=== PATIENT | male | born 1995 | race Caucasian/White ===

== ENCOUNTER 2017-09-16 08:59 | Inpatient (IN) | payer BC, OTHER ==
[~2017-09-16] VITALS: Ht 182.9 cm; Wt 72.6 kg
--- NOTE | 2017-09-16 10:55 | NUR ---
Pre-Admission Console Operator encounters pt in intake office. Pt is anxious, restless and concrete in thought process, and flat speech, clear to understand. Pt with racing thoughts and flight of ideas. Pt is difficult to redirect at times. Pt endorses using 2mg Xanax(Bar) for thr last year or so. Pt endorses binge using, using 5-6 bars daily for a couple days then doesn't use for 1 week. Last use this am, 4mg Xanax. Pt endorses doing "5 bumps of cocaine in the last 3 months." Last use more then one month ago. Pt endorse occasional "social drinking." Pt VS( to follow ) are stable and pt endorses no medical or seizure history. VS: BP: 116/70 P: 92 T:98.2 O2: 97% P:0/10
--- NOTE | 2017-09-16 11:35 | NUR ---
Admission Licensing Director admitted 22 year old male to [facility] for medical management of Benzodiazepine withdrawals. Pt endorses no medical history, with no seizure history noted. Pt endorses a PPH of Bipolar, anxiety and depression. Pt presents hyper-verbal, hyper-active, tangential with flight of ideas and pressured speech. Pt requires frequent redirection to stay on task. Pt with poor concentration and attention span. Pt is a poor historian and has difficulty creating time lines. 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 Pt endorses having been hospitalized in a psychiatric hospital on two separate occasions. Pt has difficulty with a time line, pt was recently admitted to [facility] in [place], [place]. Pt also reports a lifetime of thinking of suicide, pt states I have thought of suicide since I was a child, I think of it as a solution. Pt became anxious and defensive when functional tester typewriters asks more questions. Pt denies any current suicidal ideation. Pt denies ever having plan and states, I think of it on an intellectual level. Pt states, I am not a suicide risk. Dr. Soto on the unit, made aware of pts statements. Pt states, I am here for medical clearance to go to [facility] Pt endorses using 10-12mg of Xanax on a weekly basis, with this usage for the past 1 year. Pt states this has been his pattern, weekly use, followed by no substance abuse in between. Pt also endorses taking, 5 bumps in 3 months, with last use one month ago. Pt states he drinks, socially and only occasionally. Pt endorse this as his first detoxification center or treatment center. Pt endorses a outward bound like facility in [place], as a 17 year old. Pt states he has never had any withdrawal symptoms and cannot identify any such symptoms. Pt states his last use was this am at 0500, pt endorses 4mg, as well as 2 mg last evening. Pt is currently unemployed and lives with his parents. Although pt states, I live with my friends have the time. Pt plans on going to [facility] after discharge from [facility]. Pt states he was diagnosed as Bipolar as a young man by Dr. Alvares in [place], [place]. Pt also seeing his Learning Designer as his PCP, Dr Loza in [place] as well as psychiatrist Dr. Benitez, also of [place]. Pt states he uses because I am Bipolar when I am down I use. Pt states he wants to get sober, nimo its not working. Pt had 3 months sober because of a court mandated program, and describes extreme lows as relapse triggers and finds easy access in [place]. Pt believes if he fixes his ups and downs he would be ok. Pt states he wants to get sober, to be a successful member of society. And considers outburst of behaviors, forgetting times, ups and downs of emotions, as consequences from his drug use. Pt states he wants to fix his life and start over. Pt is educated on admission education material process and oriented to room, unit guidelines and rules. Licensing Director performs skin assessment with pts skin intact with no open sores or wounds present. Addendum: 09/17/17 at 1027 by JENAE HUMPHREY LVN CLARIFICATION: In regards to "5 bumps in 3 months" patient reports that in the past three months he has consumed taking an unknown amount of cocaine five times intranasally. Patient reports its not something he does on a regular basis reports " I don't do it all the time" In regards to Xanax usage patient verbalized taking 10-12 mg of Xanax on a non daily basis, patient reports he may use 3x/week approximately 2-4mg per day, but denies taking on a daily basis. Patient also reports there are weeks where he only uses one day for that week, and the following week it may be three days out of the week, " it depends on what is going on that day, that leads me to take it"
--- NOTE | 2017-09-16 12:00 | NUR ---
CIWA 10 Pt is anxious and restless, denies all withdrawal symptoms, " no, I feel good, I have been in withdrawal." Pt is hyper-verbal, with flight of ideas and pressured speech. Pt has a short attention span and is tangential with thought process.
[2017-09-16 12:08] LABS: *AMPHETAMINE, URINE NEGATIVE (NEGATIVE); *BARBITURATE, URINE NEGATIVE (NEGATIVE); *CANNABINOID, URINE POSITIVE (NEGATIVE); *COCCAINE, URINE NEGATIVE (NEGATIVE); *OPIATE, URINE NEGATIVE (NEGATIVE); *PHENCYCLIDINE SCREEN,URINE NEGATIVE (NEGATIVE)
[2017-09-16] MEDS ORDERED: MIRALAX 17 GM POWD.PACK PO PRN (12:30)
[2017-09-16] MEDS ORDERED: MAGNESIUM HYDROXIDE 30 ML LIQUID UDC PO PRN (12:30)
[2017-09-16] MEDS ORDERED: diphenhydrAMINE 50 MG CAPSULE PO PRN (12:30)
[2017-09-16] MEDS ORDERED: ONDANSETRON ODT 4 MG TAB.RAPDIS SL PRN (12:30)
[2017-09-16] MEDS ORDERED: MAG HYDROX/AL HYDROX/SIMETH 30 ML LIQUID UDC PO PRN (12:30)
[2017-09-16] MEDS ORDERED: ONDANSETRON 4 MG/2 ML VIAL IM PRN (12:30)
[2017-09-16] MEDS ORDERED: LOPERAMIDE HCL 2 MG CAPSULE PO PRN ×2 (12:30)
[2017-09-16] MEDS ORDERED: DICYCLOMINE HCL 20 MG TABLET PO PRN (12:30)
[2017-09-16] MEDS ORDERED: LORAZEPAM 2 MG/1 ML VIAL IM PRN (12:30)
[2017-09-16] MEDS ORDERED: IBUPROFEN 600 MG TABLET PO PRN (12:30)
[2017-09-16] MEDS ORDERED: LORAZEPAM 1 MG TABLET PO PRN (12:30)
[2017-09-16] MEDS ORDERED: ACETAMINOPHEN 325 MG TABLET PO PRN (12:30)
[2017-09-16 12:58] VITALS: BP 106/56
[2017-09-16 14:18] LABS: ETHANOL < 3 MG/DL (0-0)
[2017-09-16 14:19] LABS: AMYLASE 57 U/L (25-115); LIPASE 235 U/L (73-393)
[2017-09-16 14:21] LABS: ALANINE AMINOTRANSFERASE 40 U/L (16-63); ALKALINE PHOSPHATASE 54 U/L (50-136); ASPARTATE AMINOTRANSFERASE 21 U/L (15-37); BILIRUBIN,TOTAL 0.3 mg/dL (0.2-1.0); CARBON DIOXIDE 26 mmol/L (21-32); CHLORIDE 106 mmol/L (98-107); CREATININE 0.9 mg/dL (0.6-1.3); GLUCOSE 99 mg/dL (74-106); MAGNESIUM 2.2 mg/dL (1.8-2.4); POTASSIUM 3.6 mmol/L (3.5-5.1); TOTAL PROTEIN, SERUM 7.3 g/dL (6.4-8.2); UREA NITROGEN, BLOOD 12 mg/dL (7-18)
[2017-09-16] MEDS ORDERED: TRAZODONE 100 MG TABLET PO PRN (14:45)
[2017-09-16 15:08] LABS: BASOPHILS # (AUTO) 0.1 K/uL (0.0-8.0); BASOPHILS % (AUTO) 1.2 % (0.0-2.0); EOSINOPHILS % (AUTO) 0.5 % (0.0-7.0); HEMATOCRIT 45.5 % (36.7-47.1); HEMOGLOBIN 15.2 g/dL (12.5-16.3); LYMPHOCYTES # (AUTO) 1.6 K/uL (20.0-40.0); LYMPHOCYTES % (AUTO) 31.9 % (20.5-51.5); MEAN CORPUSCULAR HEMOGLOBIN 29.5 uug (23.8-33.4); MEAN CORPUSCULAR HGB CONC 33 g/dL (32.5-36.3); MEAN CORPUSCULAR VOLUME 88.2 fL (73.0-96.2); MONOCYTES # (AUTO) 0.3 K/uL (2.0-10.0); NEUTROPHILS % (AUTO) 59.4 % (38.5-71.5); PLATELET COUNT (AUTO) 300 K/uL (152-348); RED BLOOD CELL COUNT(AUTO) 5.16 MIL/uL (4.06-5.63)
[2017-09-16] MEDS ORDERED: BUSP15TA3 PO (16:29)
[2017-09-16] MEDS ORDERED: TRAZ-214 PO (16:29)
[2017-09-16] MEDS ORDERED: GABA-534 PO (16:29)
[2017-09-16] MEDS ORDERED: QUET100T PO (16:29)
[2017-09-16] MEDS ORDERED: GABA600T2 PO (16:29)
[2017-09-16] MEDS ORDERED: QUET50TA PO (16:29)
[2017-09-16] MEDS ORDERED: BUSP30TA2 PO (16:29)
[2017-09-16 16:30] VITALS: BP 116/80
--- NOTE | 2017-09-16 16:30 | NUR ---
CIWA 6 Pt ia anxious and restless. Cooperative and polite. Will continue t omonitor, support and encourage according to plan of care.
[2017-09-16] MEDS ORDERED: [UNRECOGNIZED DRUG - REMARK] PO (17:19)
[2017-09-16] MEDS ORDERED: IBUP-1953 PO (17:19)
[2017-09-16] MEDS ORDERED: METHYL CPG PO (17:19)
[2017-09-16] MEDS ORDERED: ASPI-612 PO (17:23)
[2017-09-16] MEDS ORDERED: ZINC57OI6 TP (17:23)
[2017-09-16] MEDS ORDERED: [UNRECOGNIZED DRUG - CODE] TP (17:33)
[2017-09-16] MEDS: GABAPENTIN 300 MG CAPSULE PO SCH ×2 (18:00→22:00)
[2017-09-16] MEDS: busPIRone 10 MG TABLET PO SCH (18:00)
--- NOTE | 2017-09-16 19:00 | NUR ---
End of Shift Machine Sand Mixer admitted pt on 09/16/17 for medical management of Xanax withdrawals. Pt endorses NKDA, full code and regular diet. Denies any PMH with a PPH of Depression, Anxiety and Bipolar DO. Pt denies any withdrawal symptoms and last CIWA was 6. Pt currently on PRN Ativan for symptoms of withdrawal. Pt is hyper-verbal and has flight of ideas. Pt is cooperative and polite. [place] in nature. Needs redirection to stay focused. Short attention span. Bed in low position with wheels locked and side rails up x2.
--- NOTE | 2017-09-16 19:30 | NUR ---
START OF SHIFT Pt is a 22 y/o male admitted on 09/16/17 for benzo withdrawal. Pt continues on PRN medication for S/S of withdraw. No PRN were given during the day. Last CIWA 6. Per endorsement Pt verbalized of having suicidal ideation as a child. Pt currently denies any active plan at this time. Upon rounds Pt's room was found to be unkempt with food wrappers on the floor. Pt presents with anxiety, agitation, restlessness, fidgety, flight of ideas and hyperverbal. Medications due. Safety measures in place. Call light within reach. Will continue to monitor the floor.
[2017-09-16 20:00] VITALS: BP 110/72
[2017-09-16] MEDS: LORAZEPAM 1 MG TABLET PO PRN (22:00)
--- NOTE | 2017-09-16 22:00 | NUR ---
PRN TRAZODONE AND ATIVAN 1MG ADMINISTRATION Pt requested sleeping aid. Also Pt presents with anxiety, agitation, restlessness, fidgety, flight of ideas and hyperverbal. CIWA 10. Safety measures in place. Call light within reach. Will continue to monitor.
--- NOTE | 2017-09-16 23:00 | NUR ---
PRN TRAZODONE AND ATIVAN REASSESSMENT. Pt found in bed with eyes closed. No restlessness noted. Reparations are unlabored and even. Medication effective. Safety measures in place. Call light within reach. Will continue to monitor.
[2017-09-17 00:14] VITALS: BP 107/68
--- NOTE | 2017-09-17 04:00 | NUR ---
VITALS REFUSED COWS DEFERRED Pt noted in bed with eyes closed. Attempted to run vitals, Pt refused. Respiration rate 16. Cows unable to be completed per order. Safety measures in place. Call light within reach. Will continue to monitor. Addendum: 09/17/17 at 0430 by JANAY NIEVES RN Amended: Links added.
--- NOTE | 2017-09-17 07:09 | NUR ---
END OF SHIFT Pt is a 22 y/o male admitted on 09/16/17 for benzo withdrawal. Pt continues on PRN medication for S/S of withdraw. Per endorsement Pt verbalized of having suicidal ideation as a child. Pt currently denies any active plan at this time. Pt presents with anxiety, agitation, restlessness, fidgety, flight of ideas and is hyperverbal. Scheduled medications and PRN Trazodone and Ativan were administered. Medication effective as verbalized by PT. Last CIWA 10. Pt slept 6 hours. Intake 1291, void x 2, stool x 0. Safety measures in place. Call light within reach. Will continue to monitor. Pt's needs have been met. Endorsed to the day shift nurse.
--- NOTE | 2017-09-17 07:28 | NUR ---
BEGINNING OF SHIFT Patient endorsement report received from machinist 2nd shift nurse, all pertinent information discussed. patient is a 22 year old male, with admitting Dx: benzodiazepine withdrawal. Patient currently continues under close observation. No ongoing taper ordered, but has PRN medications available for s/sx of withdrawal. Per machinist 2nd shift patient received PRN: Ativan, and Trazodone as ordered. Patient with last CIWA score of: 10. Patient slept for 6 hours. Patient received awake, alert and oriented x4, educated regarding plan of care for the day and mediation regimen with good verbal understanding. Safety measures in place, call light kept with in reach. will continue to monitor closely.
[2017-09-17 08:17] VITALS: BP 121/66
[2017-09-17] MEDS: busPIRone 10 MG TABLET PO SCH ×3 (08:19→16:46)
[2017-09-17] MEDS: FOLIC ACID 1 MG TABLET PO SCH (08:20)
[2017-09-17] MEDS: MULTIVITAMINS,THERAPEUTIC TABLET PO SCH (08:20)
[2017-09-17] MEDS: LORAZEPAM 1 MG TABLET PO PRN (08:20)
--- NOTE | 2017-09-17 08:20 | NUR ---
PRN ATIVAN/CIWA ASSESSMENT Patient awake, alert and oriented x4, noted with anxious and worried facial expression, and mood. Patient is disheveled, encouraged personal hygiene. Patient noted hyperverbal. Requires frequent calming reassurance. Patient presented with: anxiety, agitation, and tremors, with CIWA score of: 9. patient was administered Ativan 1 mg PO for s/sx of withdrawal. Will monitor effectiveness of medication.
[2017-09-17] MEDS: GABAPENTIN 300 MG CAPSULE PO SCH ×3 (08:21→16:46)
[2017-09-17] MEDS ORDERED: TUBERCULIN,PURIF.PROT.DERIV. 5 TU/0.1 ML TEST ID ONE (09:00)
--- NOTE | 2017-09-17 09:20 | NUR ---
ATIVAN REASSESSMENT Medication effective, decrease in CIWA score, patient noted with decrease anxiety and decrease agitation, current CIWA score of: 7, will continue to monitor. safety measures in place.
[2017-09-17 10:09] LABS: HEPATITIS B SURFACE AG Negative (Negative)
--- NOTE | 2017-09-17 10:27 | NUR ---
USAGE HX CLARIFICATION CLARIFICATION: Upon admission patient reported consuming "5 bumps in 3 months" patient reports that in the past three months he has consumed taking an unknown amount of cocaine five times intranasally. Patient reports its not something he does on a regular basis reports " I dont do it all the time" In regards to xanax usage patient verbalized taking 10-12 mg of xanax on a non daily basis, patient reports he may use 3x/week approximately 2-4mg per day, but denies taking on a daily basis. Patient also reports there are weeks where he only uses one day for that week, and the following week it may be three days out of the week, " it depends on what is going on that day, that leads me to take it"
[2017-09-17 12:19] VITALS: BP 129/82
--- NOTE | 2017-09-17 13:00 | NUR ---
CIWA ASSESSMENT Patient continues to exhibit the following s/sx of withdrawal: anxiety, agitation, and tremors, with CIWA score of: 7, will continue to monitor, safety measures in place.
[2017-09-17] MEDS ORDERED: BENZTROPINE MESYLATE 1 MG TABLET PO PRN (14:30)
[2017-09-17] MEDS: HALOPERIDOL 5 MG TABLET PO PRN (14:51)
--- NOTE | 2017-09-17 14:52 | NUR ---
BEHAVIOR/PRN HALDOL & COGENTIN Patient noted hyperactive, hyperverbal, and impulsive. Has anxious mood and anxious affect. Patient restless, with difficulty sitting still. Patient requires frequent redirection when speaking to, noted with flight of ideas. Provided with non pharmacological interventions as needed. Patient was seen by Dr. Soto during shift, per psychiatrist patient in manic state, new orders were obtained by Dr. Soto. Patient was administered Haldol 5mg PO and Cogentin as ordered Will monitor effectiveness of medication. Patient was encouraged increase in PO fluid intake as tolerated, Will continue to monitor.
--- NOTE | 2017-09-17 15:52 | NUR ---
HALDOL/COGENTIN REASSESSMENT Medication effective, decrease in hyperactivity, and less hyperverbal. Patient noted calm and cooperative. Encouraged to practice self soothing techniques such as progressive muscle relaxation. vital signs WNL. will continue to monitor.
[2017-09-17 17:15] VITALS: BP 116/68
[2017-09-17] MEDS ORDERED: BENZOCAINE/MENTH/CETYLPYRD LOZENGE MM PRN (17:45)
--- NOTE | 2017-09-17 18:58 | NUR ---
END OF SHIFT Patient alert and oriented x4, continues under close observation. patient currently with no ongoing taper, but has PRN medications available for s/sx of withdrawal. patient received PRN: Ativan 1 mg, Haldol and Cogentin all as ordered, medications were effective. During shift patient presented with: anxiety, agitation, and tremors, last CIWA score of: 7. Patient noted to be hyperverbal, and hyperactive, had flight of ideas, and impulsive, required frequent redirection and calming reassurance. Was also noted with anxious affect and anxious mood. Patient with Close observation provided at all times, all needs were met and rendered. Was seen by Dr. Soto during shift, Trazodone was increased due to patient was noted with poor sleep previous night, encouraged to avoid caffeine after 1500 and limit day time naps. Patient was also encouraged to self groom and maintain personal area due to noted disheveled and with clothes thrown on floor. Encouraged patient to participate in therapy sessions to learn new coping skills to prevent relapse, denies SI/HI. Patient encouraged to develop coping skills and utilization of non pharmacological interventions. Patient endorsed to shift leader nurse, all pertinent information was discussed.
--- NOTE | 2017-09-17 19:30 | NUR ---
Start of Shift Patient Received. Patient is noted in bed with eyes closed. Breathing even and non labored. No restlessness or facial grimacing noted. Per endorsement, patient continues on PRN medications for increased signs and symptoms of withdrawal. Patient was noted to be manic and with negative attention seeking behavior. He was noted to announce to anyone that entered his room "Hi Im Bipolar." He was seen and evaluated by psychiatrist with new orders for PRN Haldol and Cogentin. He received one dose of PRN Haldol and PRN Cogentin with medication noted to be effective. Last noted CIWA 7. All needs attended to promptly. Will continue plan of care as ordered.
[2017-09-17 20:40] VITALS: BP 100/59
[2017-09-18 00:44] VITALS: BP 95/58
--- NOTE | 2017-09-18 00:45 | NUR ---
CIWA Assessment Patient is noted in bed with eyes clsoed. Upon entering room patient is able to be aroused to name. Expalined to patient that vitals were ordered to be rendered. Patient is cooperative with vitals but states "i dont understand why you guys have to do this all night long. Its really annoying." Risks and benefits explained. Patient denies any anxiety, sweats, nausea, auditory or visual hallucinations. Will continue to monitor.
[2017-09-18 04:15] VITALS: BP 100/57
--- NOTE | 2017-09-18 04:15 | NUR ---
CIWA Assessment Patient is noted in bed sleeping. Breathing even and non labored. upon entering room patient is awaked and states "yet again." Explained to patient that vitals were ordered. Vitals rendered. Patient is noted to fall back asleep easily. CIWA not able to be completed. Will continue to monitor.
--- NOTE | 2017-09-18 07:12 | NUR ---
End of Shift Patient is noted in bed with his eyes close. Breathing even and non labored. Patient continues on PRN Medications for increased signs and symptoms of withdrawal. Patient was noted to sleep through the shift due to receiving PRN Haldol and Cogentin. No PRN Medications administered during shift. Patient noted to sleep 12 hours. Last CIWA noted to be 1. All needs attended to promptly. Will endorse to continue plan of care as ordered.
--- NOTE | 2017-09-18 07:28 | NUR ---
BEGINNING OF SHIFT Patient continues under close observation, per slot shift supervisor patient was calm and cooperative, no further episodes of hyperactive, hyperverbal or impulsivity were noted as per slot shift supervisor nurse, Patient slept for a total of 12 hours. Patient with last CIWA score of: 1. patient received no PRN medications. Patient currently continues under close observation, with admitting dx: BZO withdrawal. No ongoing taper ordered, but has PRN medications available for s/sx of withdrawal. Patient received awake, alert and oriented x4, educated regarding plan of care for the day and mediation regimen with good verbal understanding. Safety measures in place, call light kept with in reach. will continue to monitor closely.
[2017-09-18 08:44] VITALS: BP 124/91
[2017-09-18] MEDS: MULTIVITAMINS,THERAPEUTIC TABLET PO SCH (08:45)
[2017-09-18] MEDS: FOLIC ACID 1 MG TABLET PO SCH (08:45)
[2017-09-18] MEDS: busPIRone 10 MG TABLET PO SCH ×3 (08:45→16:34)
[2017-09-18] MEDS: GABAPENTIN 300 MG CAPSULE PO SCH ×2 (08:45→16:34)
--- NOTE | 2017-09-18 09:00 | NUR ---
CIWA ASSESSMENT Patient awake, alert and oriented x4, appearance is disheveled, and unkempt. Noted at times with racing thoughts, and restless. Provided with frequent redirection and calming reassurance as needed. Patient presented with the following s/sx of withdrawal: Anxiety, Restless, Agitation, Irritability, difficulty concentrating, and Emotional volatility. Patient with CIWA: 6. continues under close observation. Safety measures are in place. Will continue to monitor closely.
[2017-09-18 12:29] VITALS: BP 118/89
--- NOTE | 2017-09-18 13:00 | NUR ---
CIWA ASSESSMENT Patient continues to exhibit the following s/sx of withdrawal: Anxiety, Restless, Agitation, Irritability, difficulty concentrating, and Emotional volatility. Patient with CIWA: 6. continues under close observation. Safety measures are in place. Will continue to monitor closely.
[2017-09-18 17:00] VITALS: BP 130/87
--- NOTE | 2017-09-18 18:40 | NUR ---
PRN IBUPROFEN Patient c/o headache 08/09, provided with non pharmacological interventions with no relief, administered Ibuprofen as ordered, will endorse to clay worker nurse to f/u on effectiveness of medication.
--- NOTE | 2017-09-18 18:53 | NUR ---
END OF SHIFT Patient awake alert x4, and cooperative during shift. Continues under very close observation. Patient currently with no ongoing taper, but has medications available for s/sx of withdrawal. Patient with admitting Dx: BZO withdrawal. At times patient noted hyperverbal and hyperactive continues to require frequent redirection. Encouraged patient to participate in group therapies/sessions and activates. Patient was noted attending and participating. Denies any SI/HI. Patient noted disheveled, and unkempt, Encouraged to self groom and maintain personal area. Inability to perform ADL's without prompting . Noted at times with racing thoughts, and restless. Patient presented with the following s/sx of withdrawal: Anxiety, Restless, Agitation, Irritability, difficulty concentrating, and Emotional volatility. Patient with CIWA: 6. Patient received no PRN medications during shift.
--- NOTE | 2017-09-18 19:30 | NUR ---
Start of Shift Patient Received. Patient is noted in the activities room participating in a group meeting. Per endorsement, patient continues on PRN medications for increased signs and symptoms of withdrawal. He was noted to participate in social and group activities. PRN Motrin administered with medication noted to be effective. Last noted CIWA 6. All needs attended to promptly. Will continue to plan of care as ordered.
[2017-09-18 20:30] VITALS: BP 108/62
[2017-09-18] MEDS: TRAZODONE 100 MG TABLET PO PRN (22:36)
--- NOTE | 2017-09-18 22:36 | NUR ---
PRN Medication Administration Patient is noted verbalizing inability of falling asleep. PRN Trazodone administered as per order. Will continue to monitor
--- NOTE | 2017-09-18 23:30 | NUR ---
PRN Medication Reassessment Patient is noted in bed with his eyes closed. Breathing even and non labored. no signs of restlessness or facial grimacing noted. PRN Trazodone noted to be effective.
[2017-09-19 00:41] VITALS: BP 98/51
--- NOTE | 2017-09-19 00:41 | NUR ---
CIWA Assessment Patient is noted in bed with eyes closed. Breathing even and non labored. Upon entering room patient is able to be aroused to verbal stimuli. Explained to patient that vitals were ordered. Vitals ordered. Patient was noted to easily return to sleep with no complications noted. No restlessness or facial grimacing noted. CIWA not able to be completed. Will continue to monitor.
[2017-09-19 04:34] VITALS: BP 96/53
--- NOTE | 2017-09-19 04:35 | NUR ---
CIWA Assessment Patient is noted in bed with eyes closed. Breathing even and non labored. Upon entering room explained to patient that vitals were ordered. vitals rendered. Patient noted to remain asleep with no complications noted. CIWA unable to be completed as per order. Will continue to monitor.
--- NOTE | 2017-09-19 07:20 | NUR ---
End of Shift Patient is noted in bed with eyes closed. Breathing even and non labored. patient continues on PRN medications for increased signs and symptoms of withdrawal. He was noted to participate in social and group activities. PRN Trazodone administered with medication noted to be effective. Last noted CIWA 3. Patient noted to sleep a total of 7 hours. All needs attended to promptly. Will continue to plan of care as ordered.
--- NOTE | 2017-09-19 07:39 | NUR ---
BEGINNING OF SHIFT Patient continues under close observation,admitting dx: bzo withdrawal. Patient endorsement report received from shift production supervisor nurse, all pertinent information was discussed. Patient slept for a total of 7 hours. Patient with last CIWA score of: 3. patient received PRN: trazodone as ordered medication effective. No ongoing taper ordered, but has PRN medications available for s/sx of withdrawal. Patient received awake, alert and oriented x4, educated regarding plan of care for the day and mediation regimen with good verbal understanding. Safety measures in place, call light kept with in reach. will continue to monitor closely.
--- NOTE | 2017-09-19 09:00 | NUR ---
CIWA ASSESSMENT Patient awake, alert and oriented x4, appearance is disheveled. Patient noted with labile mood and anxious/irritable affect. Patient presented with the following s/sx of withdrawal: Anxiety, Restless, Agitation, Irritability, difficulty concentrating, and Emotional volatility. Patient with CIWA: 6. continues under close observation. Safety measures are in place. Will continue to monitor closely.
[2017-09-19 09:06] VITALS: BP 122/73
[2017-09-19] MEDS: MULTIVITAMINS,THERAPEUTIC TABLET PO SCH (09:26)
[2017-09-19] MEDS: busPIRone 10 MG TABLET PO SCH ×3 (09:26→16:37)
[2017-09-19] MEDS: GABAPENTIN 300 MG CAPSULE PO SCH ×2 (09:26→16:37)
[2017-09-19] MEDS: FOLIC ACID 1 MG TABLET PO SCH (09:26)
[2017-09-19 12:27] VITALS: BP 110/69
--- NOTE | 2017-09-19 13:00 | NUR ---
CIWA ASSESSMENT Patient continues to exhibit following s/sx of withdrawal: Anxiety, Restless, Agitation, Irritability, difficulty concentrating, and Emotional volatility. Patient with CIWA: 6. Will continue to monitor.
[2017-09-19 16:42] VITALS: BP 118/71
--- NOTE | 2017-09-19 18:58 | NUR ---
END OF SHIFT Admitting Dx: BZO withdrawal, During shift patient was alert and oriented x4. Patient currently with no ongoing taper, but has medications available for s/sx of withdrawal. Encouraged patient to participate in group therapies/sessions and activities. Patient was noted attending and participating. Denies any SI/HI. Appearance is disheveled. Patient noted with labile mood and anxious/irritable affect. Patient presented with the following s/sx of withdrawal: Anxiety, Restless, Agitation, Irritability, difficulty concentrating, and Emotional volatility. Patient with last CIWA: 6. Patient received no PRN medications during shift. Endorsed to restaurant shift supervisor nurse, all pertinent information was discussed.
--- NOTE | 2017-09-19 19:20 | NUR ---
START OF SHIFT Patient is a 22-year-old male admitted on 09/16/17 for benzo withdrawal. Patient is currently not on a taper, with PRN Ativan available for s/s of withdrawal. Patient's last CIWA was reported as 6. Per endorsement, patient received no PRN medications today. Upon assessment, patient appears disheveled and tired. Patient is alert and oriented x4, currently complaining of anxiety and agitation. Patient reports that he has terrible difficulty sleeping at night and states, "last night I didn't get any sleep with the Trazodone and I'm afraid I wont be able to sleep again tonight. I don't want to start another manic phase." Patient is irritable and emotionally labile. Patient is on fall precautions; he denies any history of seizure. Safety measures in place, side rails up x2, bed locked in low position, call light within reach. Will continue to monitor.
[2017-09-19 20:00] VITALS: BP 125/71
--- NOTE | 2017-09-19 20:00 | NUR ---
CIWA 7 Patient reports increased anxiety, agitation, restlessness, and appears irritable. Patient verbalizes that he is very concerned about sleeping tonight. SN to administer medications as ordered. Will continue to monitor and assess.
[2017-09-19] MEDS: TRAZODONE 100 MG TABLET PO PRN (22:12)
--- NOTE | 2017-09-19 22:12 | NUR ---
PRN TRAZODONE Patient complains of inability to sleep and is requesting sleep aid. PRN Trazodone 200mg given PO. Safety measures in place, side rails up x2, bed is locked in low position, call light within reach. Will monitor for effectiveness.
--- NOTE | 2017-09-19 23:12 | NUR ---
PRN TRAZODONE REASSESSMENT Patient reports "feeling sleepy." PRN Trazodone effective at this time, will continue to monitor. Safety measures in place, side rails up x2, bed locked in low position, call light within reach.
[2017-09-20] VITALS: BP 96/58
--- NOTE | 2017-09-20 | NUR ---
CIWA DEFERRED CIWA deferred at this time due to patient sleeping; to be assessed and scored when patient is awake. Respirations even and unlabored, safety measures in place, call light within reach. Will continue to monitor.
[2017-09-20 04:00] VITALS: BP 101/59
--- NOTE | 2017-09-20 04:00 | NUR ---
CIWA DEFERRED CIWA deferred at this time due to patient sleeping; to be assessed while patient is awake per protocol. Safety measures in place, side rails up x2, bed locked in low position, call light within reach. Will continue to monitor.
--- NOTE | 2017-09-20 07:07 | NUR ---
END OF SHIFT Patient is a 22-year-old male admitted on 09/16/17 for benzo withdrawal. Patient is currently not on a taper. PRN meds available for s/s of withdrawal and discomfort. Patient's last CIWA was 7. Patient received PRN Trazodone; noted to be effective. Patient's chief complaint and main concern at this time is adequate sleep/rest during night-time hours. Patient slept for 8 hours, total intake of 1,825mL, void x4, stool x1. Patient is on fall precautions; he denies any history of seizure. Safety measures in place, side rails up x2, bed locked in low position, call light within reach. Will endorse to day shift.
--- NOTE | 2017-09-20 07:15 | NUR ---
Start Of Shift: Patient is a 22 yr old male who was admitted to [facility] on 09/16/17 for a medically supervised withdrawal from Benzodiazepines ( Xanax). He is not currently on any taper but has PRN comfort meds available at this time. He is awake in bed at this time and voices no complaints or concerns, states that he is nervous/anxious about leaving tomorrow to go onto treatment. PRN Trazodone was given on PM shift for sleep, he slept for 8 hours and last CIWA was 7 @ 2000. Continue to follow MD plan of care and offer support as needed.
[2017-09-20 08:00] VITALS: BP 112/61
[2017-09-20] MEDS ORDERED: QUETIAPINE FUMARATE 25 MG TABLET PO PRN (08:45)
[2017-09-20] MEDS: MULTIVITAMINS,THERAPEUTIC TABLET PO SCH (08:54)
[2017-09-20] MEDS: FOLIC ACID 1 MG TABLET PO SCH (08:54)
[2017-09-20] MEDS: GABAPENTIN 300 MG CAPSULE PO SCH ×2 (08:54→17:16)
[2017-09-20] MEDS: busPIRone 10 MG TABLET PO SCH ×3 (08:54→17:16)
--- NOTE | 2017-09-20 09:00 | NUR ---
CIWA 9 Patients withdrawal symptoms include increased anxiety/irritability, restlessness, flat sad affect, depression and difficulty sleeping. 10mg Scheduled Buspar given along with PRN Vistaril 25 MG PO, will reassess
[2017-09-20] MEDS: HYDROXYZINE PAMOATE 25 MG CAPSULE PO PRN ×2 (09:10→17:16)
--- NOTE | 2017-09-20 09:10 | NUR ---
PRN Vistaril Vistaril 25 MG PO given for patients report of increased anxiety and agitation, will reassess
--- NOTE | 2017-09-20 10:10 | NUR ---
PRN reassess Patient states he still feels anxious, MD on unit , will ask for order for Clonidine PO
[2017-09-20] MEDS ORDERED: CLONIDINE HCL 0.3 MG TABLET PO PRN (10:45)
--- NOTE | 2017-09-20 10:45 | NUR ---
Communication Order for 0.1MG Clonidine PO Q4 PRN obtained from Dr Byrd
[2017-09-20] MEDS ORDERED: CLONIDINE HCL 0.1 MG TABLET PO PRN (11:00)
--- NOTE | 2017-09-20 11:00 | NUR ---
PRN Clonidine Clonidine 0.1 MG Po given for increased anxiety/ irritation, restlessness and diaphoresis
[2017-09-20 12:00] VITALS: BP 99/47
--- NOTE | 2017-09-20 12:00 | NUR ---
PRN Reassess Clonidine 0.1MG PO effective, Pulse is 78, patient appears calm and states he feels less anxious
--- NOTE | 2017-09-20 12:05 | NUR ---
CIWA 10 withdrawal symptoms include increased anxiety and irritability, restlessness, Insomnia and inability to think clearly. Vistaril and Clonidine were given with positive effects in helping to reduce anxiety and irritability.
[2017-09-20] MEDS: HALOPERIDOL 5 MG TABLET PO PRN (14:00)
--- NOTE | 2017-09-20 14:00 | NUR ---
PRN HALDOL HALDOL 5MG PO GIVEN FOR REPORTS OF INCREASING AGITATION AND INABILITY TO FOCUS AND A FEELING OF LOSING CONTROL EMOTIONALLY. WILL CONTINUE TO MONITOR
[2017-09-20] MEDS ORDERED: QUET25TA PO (14:23)
[2017-09-20] MEDS ORDERED: BUSP10TA3 PO (14:23)
--- NOTE | 2017-09-20 15:00 | NUR ---
ESVIN KIMBALL REASSESS Patient appears much calmer and less irritable and states he feels less emotional now, will continue to monitor
[2017-09-20 16:00] VITALS: BP 111/74
--- NOTE | 2017-09-20 17:00 | NUR ---
PRN Vistaril Vistaril 25MG given for reports of increased anxiety, will reassess
--- NOTE | 2017-09-20 17:00 | NUR ---
CIWA 9 withdrawal symptoms present as increased anxiety and irritability, restlessness, fidgeting and diaphoresis. PRN Haldol was given @ 1400 for increased agitation and racing thoughts Vistaril 25 MG Po was given for anxiety/agitation
--- NOTE | 2017-09-20 18:00 | NUR ---
PRN Reassess Patient appears calm and relaxed and states he feels less emotional and anxious, Vistaril effective.
--- NOTE | 2017-09-20 19:05 | NUR ---
End Of Shift : Patient is a 22 yr old male who was admitted to [facility] on 09/16/17 for a medically supervised withdrawal from Xanax. He has been on PRN medications and will be discharged tomorrow to "[facility]". Today he has increased emotional amplitude requiring PRN Haldol, Vistaril and Clonidine, he displays increased anxiety when talking about discharge plans. He has attended groups today and is interacting with his peers. He had a fluid intake of 2850 ML, 4 Voids and 1 BM, Last CIWA ( @ 1700. Continue to follow MD plan of care and offer support as needed. Endorsed to night baker. Addendum: 09/20/17 at 1908 by LYNDA LUDWIG RN CIWA 9 @ 1700
[2017-09-20 20:00] VITALS: BP 104/57
--- NOTE | 2017-09-20 20:00 | NUR ---
Start of Shift Note Received a 22 y/o male px, admitted for medically supervised withdrawal from Xanax. Px was put on PRN Ativan. Px is to be D/C tomorrow, 09/21/2017. Last reported CIWA 9 by AM shift nurse. During the rounds at 1999, px is asleep on bed in right side lying position. Bed on lowest position, side rails up 2x and call light within reach. We'll continue to monitor.
--- NOTE | 2017-09-20 20:00 | NUR ---
CIWA deferred CIWA deferred due to the px is asleep, to assess if the px is awake per doctor's order. We'll continue to monitor.
--- NOTE | 2017-09-20 22:15 | NUR ---
CIWA 7 Px just woke up. Px appears anxious and odorous. He has good eye contact. Px stated "My anxiety is about 5/10. Can I have my night meds?" No other complaints made
--- NOTE | 2017-09-20 22:21 | NUR ---
PRN Seroquel Px received Seroquel 25 mg/tab, 2 tabs PO for insomnia as px requested for it. We'll continue to monitor.
[2017-09-21] VITALS: BP 109/61
--- NOTE | 2017-09-21 | NUR ---
CIWA deferred CIWA deferred due to the px is asleep, to assess if the px is awake per doctor's order. We'll continue to monitor.
[2017-09-21 04:00] VITALS: BP 110/63
--- NOTE | 2017-09-21 04:00 | NUR ---
CIWA deferred CIWA deferred due to the px is asleep, to assess if the px is awake per doctor's order. We'll continue to monitor.
--- NOTE | 2017-09-21 07:05 | NUR ---
End of Shift Note Px is to be D/C today, 09/21/2017. During the shift, px slept most of the time. At 2221, px received Seroquel 50 mg PO as PRN medications for insomnia. It was effective. Px slept for total of 10 hours. Px oral intake is 800 ml, voided 2x, without BM. At 0630, px is asleep on bed in left side lying position. Last CIWA 7. Bed on lowest position, side rails up 2x and call light within reach. We'll continue to monitor. Endorsed to AM shift nurse.
--- NOTE | 2017-09-21 07:17 | NUR ---
Start Of Shift: Patient is a 22 yr old male who was admitted to [facility] on 09/16/17 for a medically supervised withdrawal from Benzodiazepines ( Xanax). He has completed a stay here with PRN Ativan and comfort meds and is to be discharged this AM to " [facility]". PRN Seroquel was given on PM shift and patient slept for 10 hours, Last CIWA 7. He is awake at this time and requesting to shower. Continue to follow MD plan for DC.
[2017-09-21] MEDS: MULTIVITAMINS,THERAPEUTIC TABLET PO SCH (07:47)
[2017-09-21] MEDS: busPIRone 10 MG TABLET PO SCH (07:47)
[2017-09-21] MEDS: FOLIC ACID 1 MG TABLET PO SCH (07:47)
[2017-09-21] MEDS: GABAPENTIN 300 MG CAPSULE PO SCH (07:47)
[2017-09-21] MEDS: HYDROXYZINE PAMOATE 25 MG CAPSULE PO PRN (07:47)
--- NOTE | 2017-09-21 07:50 | NUR ---
PRN Vistaril Vistaril 25MG Po given for reports of increased anxiety. will reassess
[2017-09-21 08:00] VITALS: BP 116/69
--- NOTE | 2017-09-21 08:50 | NUR ---
PRN Reassess Patient states Vistaril 25 MG Po effective in reducing anxiety
--- NOTE | 2017-09-21 09:30 | NUR ---
Discharge Note Patient has signed and dated all DC paperwork, All belongings, personal items and prescriptions placed in zip tied belongings bag. VS stable : BP 116/69, HR 77, O2 98%, RR16, T 99 Patient states no SI/HI. Last CIWA 7 @ 0800. Patient ambulated off the unit @ 0926 and was picked up by private car " [facility] " for transport to " [facility]".
== END 2017-09-21 09:35 | disposition other institution (70) | DRG 895 ==
LOC: SRC 11:06
PROVIDERS: ADMIT Family Medicine Addiction Medicine; ATTEND Family Medicine Addiction Medicine
PROC: HZ2ZZZZ Detoxification Services for Substance Abuse Treatment (ICD-10-PCS; principal; 2017-09-16)
PROC: HZ41ZZZ Group Counseling for Substance Abuse Treatment, Behavioral (ICD-10-PCS; principal; 2017-09-16)
DX: F13.239 Sedative, hypnotic or anxiolytic dependence with withdrawal, unspecified (principal); F31.64 Bipolar disorder, current episode mixed, severe, with psychotic features; F12.90 Cannabis use, unspecified, uncomplicated; Z79.899 Other long term (current) drug therapy; F41.9 Anxiety disorder, unspecified
CPT/HCPCS: 36415; 70030-TC; 80307; 80346; 80349; 83690; 83735; 85025; 86592; 86705; 86803; 87340; 87806; A4663; G0480